=== PATIENT | female | born 1985 | race Caucasian/White ===

== ENCOUNTER 2018-11-15 10:40 | Emergency (ER) | payer OTHER ==
[~2018-11-15] VITALS: Ht 170.2 cm; Wt 79.6 kg
[~2018-11-15 10:40] MED LIST: NAPR-985 PO
[2018-11-15 10:43] VITALS: BP 128/79; PULSE 66; RESP 18; Ht 170.2 cm; Wt 79.6 kg
[2018-11-15] MEDS ORDERED: ONDANSETRON (ODT) 4 MG TAB ODT STA (12:02)
[2018-11-15] MEDS ORDERED: HYDROCODONE/APAP (5/325) TAB PO ONE (12:30)
== END 2018-11-15 14:57 | disposition home or self-care (01) ==
LOC: FTE 10:40
DX: M79.604 Pain in right leg (principal); M79.605 Pain in left leg
CPT/HCPCS: 36415; 80053; 81001; 81025; 82310; 83690; 83735; 83970; 85025; Z7502; Z7610; 81003; 99283